=== PATIENT | male | born 1940 | race Caucasian/White ===

== ENCOUNTER 2016-12-07 13:52 | Inpatient (IN) | payer MEDICARE ==
[~2016-12-07] VITALS: Ht 172.7 cm; Wt 80.3 kg
--- NOTE | 2016-12-07 14:12 | NUR ---
DR SHARIF AT BEDSIDE FOR MSE
--- NOTE | 2016-12-07 14:16 | NUR ---
X-RAY AT BEDSIDE.
--- NOTE | 2016-12-07 14:19 | NUR ---
SPOKE W/ HAR[facility] IN CASE MANAGEMENT ABOUT PT'S LIVING SITUATION & APPARENT INABILITY TO CARE FOR SELF.
--- NOTE | 2016-12-07 14:20 | NUR ---
PT BIB [facility] FOR C/O FALL. PER REPORT PT LIVES ALONE IN A [facility] AT [facility]. PTS NEIGHBOR CALLED WHEN THEY FOUND HIM LYING ON THE FLOOR. PT UNAWARE OF WHEN HE FELL OR HOW LONG HE HAS BEEN LAYING ON THE FLOOR. PT STS LAST THING HE REMEMBERS IS EATING BREAKFAST THIS MORNING. PT UPON ARRIVAL TO THE ED IS ALERT AND ORIENTED SPEAKING IN CLEAR COMPLETE SENTENCES. PTS BREATHING IS EVEN AND UNLABORED. PT HAS A URINE SMELL TO HIM AND APPEARS TO NOT HAVE BATHED IN A COUPLE OF DAYS PT HAS DIRT ALL OVER ARMS AND LEGS AND UNDER HIS NAILS. PT HAS SWELLING NOTED ABOVE RT EYE. PT HAS REDNESS NOTED UNDER BREAST LINE WITH WHAT APPEARS TO BE FROM LAYING ON HIS STOMACH AFTER FALLING. PT REPORTS HIS ONLY PAIN IS AT HIS TAILBONE. PT IS UNDRESSED PLACED IN GOWN ON BALL POINT SPLITTER WITH CALL LIGHT IN REACH AND IN VIEW OF THE NURSES STATION, PT AWAITING MSE WILL CONTINUE TO MONITOR
--- NOTE | 2016-12-07 14:23 | NUR ---
EKG IN PROGRESS AT BEDSIDE
--- NOTE | 2016-12-07 14:25 | NUR ---
SPOKE TO AUGUSTA BROWN PTS SON WITH PERMISSION FROM PT TO SPEAK TO SON. PER SON HE LIVES IN [facility] AND IS ON HIS WAY DOWN RIGHT NOW, BUT WILL NOT BE IN TOWN UNTIL TOMORROW MID MORNING. SON STS HIS FATHER WAS JUST DIAGNOSED WITH A DISEASE CALLED NAOMIE SUPRANUCLEAR PALSY. SON ASKED IF PT WILL BE STAYING OR WHEN RESULTS COME IN CAN HE PLEASE GET A PHONE CALL WITH RESULTS. DR SHARIF MADE AWARE.
[2016-12-07 14:50] LABS: PLATELET COUNT 261 x10^3mcL (130-400); RED CELL DISTRIBUTION WIDTH 12.7 % (11.5-14.5)
[2016-12-07 14:59] LABS: BASOPHIL % 0 % (0-2)
--- NOTE | 2016-12-07 15:09 | NUR ---
PT TO RADIOLOGY VIA [facility]
--- NOTE | 2016-12-07 15:22 | NUR ---
PT MEDICATED WITH ASPIRIN 325MG PO PER MD ORDERS. PT EDUCATED ON MEDICATION PRIOR TO ADMINISTRATION AND VERBALIZED UNDERSTANDING. PT REMAINS ON AUTOMATIC CLIPPER WITH CALL LIGHT IN REACH
[2016-12-07 15:28] LABS: UA SPECIFIC GRAVITY >=1.030 (1.005-1.035); microscopic required? YES; urine erythrocyte 3+ (NEGATIVE)
[2016-12-07 15:33] LABS: CALCIUM 8.9 mg/dL (8.5-10.1); CARBON DIOXIDE 24.4 mmol/L (21-32); CHLORIDE SERUM 102 mmol/L (98-107); CREATININE SERUM 1.4 mg/dL (0.7-1.3); GLUCOSE SERUM 117 mg/dL (74-106); POTASSIUM SERUM 3.5 mmol/L (3.5-5.1); SODIUM SERUM 139 mmol/L (136-145)
--- NOTE | 2016-12-07 15:40 | NUR ---
SPOKE TO [place] PTS DAUGHTER. PER DAUGHTER PT FRACTURED OR BROKE RIBS 1-2 MONTHS AGO. DAUGHTER IS IN THE WORKS OF TRYING TO GET PT MOVED OUT TO [place] TO BE CLOSE TO FAMILY. DAUGHTER MADE AWARE DR SHARIF WILL BE CALLING WITH TEST RESULTS. DAUGHTERS PHONE NUMBER [phone]
[2016-12-07] MEDS ORDERED: METHOTREXATE2.5 M2 (15:43)
[2016-12-07] MEDS ORDERED: LISINOPRIL2.5 MG (15:43)
[2016-12-07] MEDS ORDERED: SIMVASTATIN (15:43)
[2016-12-07 16:00] LABS: ALBUMIN 3.6 g/dL (3.4-5.0); ALKALINE PHOSPHATASE 59 U/L (46-116); ALT/SGPT 98 U/L (16-63); AST/SGOT 298 U/L (15-37); BILIRUBIN TOTAL 1.18 mg/dL (0.20-1.00); TOTAL PROTEIN, SERUM 7.2 g/dL (6.4-8.2)
[2016-12-07 16:01] LABS: CK-MB 62.3 ng/mL (0-3.6)
--- NOTE | 2016-12-07 16:13 | NUR ---
REPORT GIVEN TO RAFIQ CONNOLLY TO ASSUME CARE OF PT PTS PRIMARY NURSE.
--- NOTE | 2016-12-07 16:38 | NUR ---
RECEIVED PT FROM ER VIA GURNEY ACCOMPANIED BY RN AND EMT. PT MOVED TO BED AND MADE COMFORTABLE. VS DONE AND MONITOR APPLIED. IV HEPLOCK TO LAC CDI. PT DROWSY, AWAKENS TO VOICE/TOUCH STIMULI ORIENTATED X4 WITH NO C/O PAIN AT THIS TIME. BREATH SOUNDS CLEAR BILATERALLY. ABDOMEN SOFT WITH ACTIVE BOWEL SOUNDS. PULSES PRESENT WITH NO EDEMA NOTED. F/C DRAINING TO GRAVITY TEA COLORED URINE WITH STRONG ODOR NOTED. PT NOTED TO BE DISHEVELED WITH REDDENED SKIN AND ABRASIONS AMA TO BLE, RT HAND AND LT ELBOW. CALL LIGHT WITHIN REACH.
[2016-12-07 17:05] LABS: FREE T4 1.25 ng/dL (0.76-1.46); FREE THYROXINE INDEX 2.3 ug/dL (1.4-4.5); MAGNESIUM 2.4 mg/dL (1.8-2.4); PHOSPHOROUS 4.1 mg/dL (2.5-4.9); T4(THYROXINE) 6.9 ug/dL (4.7-13.3)
[2016-12-07 17:06] LABS: T3 TOTAL 0.67 ng/mL
[2016-12-07 17:07] LABS: CHOLESTEROL/HDL RATIO 2.5
[2016-12-07 17:08] VITALS: BP 136/60
[2016-12-07 17:22] VITALS: Ht 172.7 cm; Wt 80.3 kg
[2016-12-07 17:36] LABS: AMPHETAMINE QUAL UR NONE DETECTED (NEG <=1000)
--- NOTE | 2016-12-07 18:40 | NUR ---
DR. LUNDBERG MADE AWARE OF TRPOPONIN: 0.452; CK-MB: 62.3; CREATINE KINASE: 74294. PT DENIES CP, SOB AT MOMENT.
--- NOTE | 2016-12-07 20:00 | NUR ---
PT. SLEEPING, EASY TO WAKE. ORIENTED X4. SPEECH SLOW, BUT CLEAR. PT. STATED THAT HE'S FEELING TIRED AND FATIGUED. ABLE TO FOLLOW COMMANDS. DENIES HEADACHE OR DIZZINESS. BREATH SOUNDS CLEAR THROUGHOUT LUNG MOHAN, RESP. EVEN, UNLABORED. NO SOB NOTED. NSR ON MONITOR, DENIES ANY CHESTPAIN OR DISCOMFORT. SCATTERED ABRASIONS TO BUE AND BLE.SMALL CUT TO LT ELBOW, FLAVORINGS COMPOUNDER. FOREHEAD SLIGHTLY RED. NO EDEMA TO BLE. PEDAL PULSES STRONG. ABD. SOFT AND ROUND, BOWEL SOUNDS ACTIVE. IVF NS AT 150CC/HR. DENIES ANY PAIN AT THIS TIME. BED LOW LAYING W/ ALARM ON. CALL LIGHT WITHIN REACH.
[2016-12-07] MEDS ORDERED: SINEMET 25-1001 TAB PO (20:36)
[2016-12-07 22:44] VITALS: BP 120/54
--- NOTE | 2016-12-07 23:54 | NUR ---
RECEIVED CRITICAL LAB VALUE FOR TROPONIN, NOW 0.466. DR. LUNDBERG ON UNIT , MADE AWARE. NO NEW ORDERS AT THIS TIME. WILL CONTINUE TO MONITOR PT.
[2016-12-08] VITALS (7 sets, daily range): BP systolic 105–130; BP diastolic 46–62
--- NOTE | 2016-12-08 04:06 | NUR ---
PT. RESTING QUIETLY. EYES CLOSED, APPEARS TO BE SLEEPING. NO C/O CHESTPAIN OR DISCOMFORT. NO RESP. DISTRESS OR SOB THUS FAR. IVF NS INFUSING WELL. BED LOW LAYING W/ ALARM ON, CALL LIGHT WITHIN REACH.
[2016-12-08 06:59] LABS: BASOPHIL % 0.2 % (0-2); PLATELET COUNT 212 x10^3mcL (130-400); RED CELL DISTRIBUTION WIDTH 12.3 % (11.5-14.5)
[2016-12-08 07:14] LABS: CALCIUM 8.3 mg/dL (8.5-10.1); CARBON DIOXIDE 22.2 mmol/L (21-32); CHLORIDE SERUM 105 mmol/L (98-107); CREATININE SERUM 1.2 mg/dL (0.7-1.3); GLUCOSE SERUM 87 mg/dL (74-106); MAGNESIUM 2.1 mg/dL (1.8-2.4); PHOSPHOROUS 2.8 mg/dL (2.5-4.9); POTASSIUM SERUM 3.2 mmol/L (3.5-5.1); SODIUM SERUM 140 mmol/L (136-145)
--- NOTE | 2016-12-08 07:45 | NUR ---
RECEIVED PT LAYING IN BED AWAKE AND ALERT. AAOx4. ID BAND ON AND VERIFIED. IV SITE PATENT AND INFUSING WELL, IV TUBING LABELLED PROPERLY. INFORMATION BOARD UPDATED. PT DENIES PAIN AT THIS TIME. NO APPARENT SIGNS OF ACUTE DISTRESS NOTED AT THIS TIME. CALL LIGHT WITHIN REACH. ENCOURAGED TO CALL FOR ASSISTACNE WHEN NEEDED. WILL CONTINUE TO MONITOR
--- NOTE | 2016-12-08 13:29 | NUR ---
PT IN BED SITTING UP EATING HIS LUNCH. SON IS AT BEDSIDE. NO APPARENT SIGNS OF ACUTE DISTRESS AT THIS TIME. CALL LIGHT WITHIN REACH. ENCOURAGED TO CALL FOR ASSISTANCE WHEN NEEDED. WILL CONTINUE TO MONITOR
--- NOTE | 2016-12-08 14:11 | NUR ---
Nuring trigger recieved for appears underweight/malnourished, unintentional wieght loss >10# in past, admitted with potential risk diagnosis, poor PO intake > 3 days. Patient is currently on [facility] diet eating 100%, BMI 26.9 (overwieght). Per bed huddles, possible transfer to [facility]. Low nutrition risk initial assessment to be completed on 12/14
--- NOTE | 2016-12-08 17:10 | NUR ---
RECEIVED CALL FROM [facility]NAG[facility] . PT ACCEPTED TO [facility], ROOM 324. CALL REPORT TO . ACCEPTING DR MOISE TRANSPORT VIA [facility] ACLS MECHANIC FIELD SERVICE TIME 1929. INFORMATION RELAYED TO FERNANDO ROOT) AND PRIMARY NURSE. DR PRICE PAGED TO MAKE AWARE, AWAITING CALL BACK.
--- NOTE | 2016-12-08 18:52 | NUR ---
PT CONSENT FOR TRANSFER TO [facility] HAS BEEN SIGNED BY PT. PT IS AAOx4. FAMILY IS AWARE WELL. CALLED OVER TO GIVE REPORT TO CHIP AT 1845. SCHEDULED PRE PRESS MANAGER TIME IS 1929 BY [facility]. PT DENIES PAIN AT THIS TIME. NO APPARENT SIGNS OF DISTRESS NOTED AT THIS TIME. PT IS NOW HEPLOCKED AND PREPARED FOR DISCHARGE
== END 2016-12-08 19:35 | disposition short-term general hospital (02) | DRG 557 ==
LOC: ED 13:52 → DU 15:46
PROVIDERS: Emergency Medicine; ADMIT Family Medicine
DX: M62.82 Rhabdomyolysis (principal); N17.0 Acute kidney failure with tubular necrosis; G23.1 Progressive supranuclear ophthalmoplegia [Steele-Richardson-Olszewski]; I10 Essential (primary) hypertension; R31.9 Hematuria, unspecified; E87.6 Hypokalemia; R26.0 Ataxic gait; R33.9 Retention of urine, unspecified; L40.50 Arthropathic psoriasis, unspecified; N28.1 Cyst of kidney, acquired; N20.0 Calculus of kidney; K76.0 Fatty (change of) liver, not elsewhere classified; I25.10 Atherosclerotic heart disease of native coronary artery without angina pectoris; Z95.5 Presence of coronary angioplasty implant and graft; Z59.0 Homelessness; Z87.891 Personal history of nicotine dependence; Z68.27 Body mass index [BMI] 27.0-27.9, adult
CPT/HCPCS: 80307; 82962; 83880; 84439; G0480; J3480; J7030; Q0092